=== PATIENT | female | born 1985 | race Caucasian/White ===

== ENCOUNTER → 2019-06-25 13:55 | Outpatient (CLI) | payer SELFPAY ==
--- NOTE | 2019-06-25 13:56 | DI.RAD.S_ITS ---
PROCEDURE: XR ELBOW RT MIN 3V INDICATIONS: Lump in antecubital area, elbow pain. TECHNIQUE: 3 views of the elbow were acquired. COMPARISON: None. FINDINGS: Bones: No fractures or dislocations. No bony erosions. No suspicious bony lesions. Soft tissues: No elbow joint effusion. No suspicious soft tissue calcifications. IMPRESSION: 1. No bony erosions or evidence of joint effusion. Dictated by: Errol Bone M.D. on 06/25/2019 at 13:14 Approved by: Errol Bone M.D. on 06/25/2019 at 13:18
== END ==
PROVIDERS: Family Provider Family Medicine; PCP Family Medicine; Visit Provider Nurse Practitioner
DX: M25.521 Pain in right elbow (principal)
CPT/HCPCS: 73080

== ENCOUNTER 2021-11-04 21:08 | Emergency (ER) | payer BC, SELFPAY ==
[2021-11-04] VITALS (10 sets, daily range): BP systolic 147–207; BP diastolic 75–95; PULSE 95–159; RESP 20–24; TEMP 37.1; O2SAT 95–99
--- NOTE | 2021-11-04 21:21 | ED_ITS ---
HPI - Chest Pain General Chief Complaint: Shortness of Breath/Dyspnea Stated Complaint: possible allergic reaction Time Seen by Provider: 11/04/21 21:15 History of Present Illness HPI narrative: Patient is a 36-year-old female currently 18 weeks . She has received care in [place] with a inside upholsterer. She flew here 5 days ago for work. She has had some increased swelling in her legs. She has had some increased shortness of breath previous to when she got here however it has gotten worse since she has been here. Faintly short of breath whenever she gets up to go to the restroom. He has been checking her blood pressure at home and monitoring it for last couple of weeks it is consistently been 140 tall 150, today it was 160. She was seen by a inside upholsterer today she was noted to have an elevated blood pressure she was prescribed nifedipine 10 mg she took her 1st dose tonight immediately felt flushed home and headaches. She is noted to be quite hypertensive and tachycardic here heart rates in the 140s help blood pressures in the 200s. She has not previously had these issues before her other pregnancies were uncomplicated. She denies any abdominal pain vaginal bleeding for nausea. Related Data Previous Rx's Medication Instructions Recorded cyclobenzaprine 5 mg tablet 10 mg PO BEDTIME PRN #16 tab 06/25/19 labetalol 100 mg tablet 100 mg PO BID #60 tab 11/05/21 Allergies Allergy/AdvReac Type Severity Reaction Status Date / Time INGREDIENT: NO KNOWN - NO Allergy Unknown Uncoded 10/20/17 11:50 KNOWN DRUG ALLERGY UNKNOWN ANTIBIOTIC Allergy Unknown Uncoded 10/20/17 11:50 Review of Systems Review of Systems Narrative: GENERAL: Denies chills, fatigue, malaise, fever, sweats, travel HEENT: Denies sinus pain, ear pain, sore throat, difficulty swallowing, neck pain RESPIRATORY: See HPI CARDIOVASCULAR: See HPI GASTROINTESTINAL: Denies nausea, vomiting, abdominal pain, diarrhea, constipation, melena. : Denies dysuria, frequency, incontinence, hematuria, urinary retention, flank pain. MUSCULOSKELETAL: Denies weakness, joint pain, or bony pain SKIN: No rash, no erythema, no pruritus NEUROLOGIC: No numbness tingling or weakness PSYCHIATRIC: No concerning psychosocial issues. 12 point review of systems is negative except for those stated above and HPI Exam Initial Vital Signs Initial Vital Signs: Vital Signs Pulse Rate 137 H 11/04/21 21:18 Respiratory Rate 21 11/04/21 21:18 Pulse Oximetry 99 11/04/21 21:18 GENERAL: Alert 36-year-old female appears moderate distress in [no acute] distress. HEENT: Head atraumatic,EOMI, pupils reactive, face symmetric, [moist] mucous membranes CARDIOVASCULAR: Regular rate and rhythm without murmurs, rubs or gallops. RESPIRATORY: Breath sounds equal bilaterally, no wheezes rales or rhonchi. ABDOMEN: Soft, gravid nontender. Normoactive bowel sounds all 4 quadrants. No guarding or rebound. : No CVA tenderness EXTREMITIES: Normal range of motion, no clubbing or edema. Neurovascularly intact NEUROLOGICAL: Alert and oriented x4.Normal gait and speech. SKIN: Warm, dry, no laceration, no petechiae, no rashes or lesions. Course Orders Ordered: ED Orders 11/04/21 21:19 A1C [Hemoglobin A1C% w Est Avg Glu] Stat Complete Blood Count AUTO DIFF Stat Comprehensive Metabolic Panel Stat D Dimer Stat Lipase Stat NT-proBNP (BNP-Adult 18+) Stat Partial Thromboplastin Time Stat Prothrombin Time INR Stat Troponin & CK Cardiac Panel Stat 11/04/21 21:21 EKG-12 Lead Stat 11/04/21 22:53 CT angio chest PE protocol Stat Discontinued Medications Sodium Chloride (Normal Saline 0.9%) 1,000 mls @ 1,000 mls/hr IV CONT MARYELLEN Last Infusion: 11/04/21 23:22 Dose: 0 mls/hr Documented by: Admin: 11/04/21 21:33 Dose: 1,000 mls/hr Documented by: FOX Labetalol HCl (Labetalol 20 Mg/4 Ml Syringe) 10 mg IV NOW ONE Stop: 11/04/21 21:25 Last Admin: 11/04/21 21:32 Dose: 10 mg Documented by: FOX Labetalol HCl (Labetalol 100 Mg Tablet) 100 mg PO NOW ONE Stop: 11/05/21 00:50 Last Admin: 11/05/21 01:09 Dose: 100 mg Documented by: FOX Methylprednisolone (Methylprednisolone 125 Mg/2 Ml Vial) 125 mg IV NOW ONE Stop: 11/04/21 21:22 Last Admin: 11/04/21 21:32 Dose: 125 mg Documented by: FOX Ondansetron HCl (Ondansetron 4 Mg/2 Ml Inj) 4 mg IV NOW ONE Stop: 11/04/21 21:22 Last Admin: 11/04/21 21:32 Dose: 4 mg Documented by: FOX Vital Signs Vital signs: Vital Signs - 8 hr 11/04/21 22:00 11/04/21 22:30 11/04/21 23:00 Pulse Rate 100 H 96 H 95 H Respiratory Rate 20 21 23 Blood Pressure 158/86 H 147/75 H 153/84 H Pulse Oximetry 97 96 95 11/04/21 23:41 11/05/21 00:00 11/05/21 00:30 Pulse Rate 109 H 98 H 104 H Respiratory Rate 25 H 23 Blood Pressure Pulse Oximetry 98 95 97 11/05/21 00:46 11/05/21 01:00 Pulse Rate 102 H 98 H Respiratory Rate 23 26 H Blood Pressure 162/88 H 154/85 H Pulse Oximetry 97 95 MDM - Chest Pain Lab Data Result diagrams: 11/04/21 21:19 11/04/21 21:19 Labs: Lab Results 11/04/21 11/04/21 11/04/21 Range/Units 21:19 21:19 21:19 WBC 12.4 H (4.5-11.0) X10^3/uL RBC 4.89 (4.0-5.2) X10^6/uL Hgb 13.5 (12.0-16.0) g/dL Hct 39.9 (36-46) % MCV 81.7 (80-100) fL MCH 27.6 (26-34) PG MCHC 33.8 (30-36) % RDW 15.8 H (11.6-14.8) % Plt Count 265 (150-400) X10^3/uL Neut % (Auto) 68.1 (50-75) % Lymph % (Auto) 22.3 L (25-40) % [place] % (Auto) 6.4 (3-14) % Eos % (Auto) 2.6 (2-4) % Baso % (Auto) 0.6 (0-2) % Neut # (Auto) 8400 H (0505-8215) /uL Lymph # (Auto) 2800 (2680-4029) /uL [place] # (Auto) 800 (0-900) /uL Eos # (Auto) 300 (0-450) /uL Baso # (Auto) 100 (0-100) /uL PT 10.0 L (10.1-12.7) SECONDS INR 0.9 (0.9-1.3) APTT 29 (26.4-36.2) SECONDS D-Dimer (<230) ng/mL Sodium 138 (137-145) mmol/L Potassium 3.6 (3.4-5.1) mmol/L Chloride 105 (98-107) mmol/L Carbon Dioxide 23 (22-32) mmol/L BUN 3 L (7-17) mg/dL Creatinine 0.40 L (0.52-1.04) mg/dL Estimated GFR > 60 (>60) mL/min BUN/Creatinine Ratio 7.5 (6-22) Glucose 229 H (70-100) mg/dL Hemoglobin A1c (4.0-6.0) % Calcium 9.3 (8.4-10.2) mg/dL Total Bilirubin 0.4 (0.2-1.3) mg/dL AST 52 H (14-36) IU/L ALT 37 H (<35) IU/L Alkaline Phosphatase 61 (38-126) U/L Total Creatine Kinase 55 (30-135) U/L CK-MB (CK-2) TNP CK-MB (CK-2) Rel Index TNP Troponin I < 0.012 (0.01-0.034) ng/mL NT-Pro-B Natriuret Pep 13 (<125) pg/mL Total Protein 7.8 (6.3-8.2) g/dL Albumin 4.3 (3.5-5.0) g/dL Globulin 3.5 (1.7-4.1) g/dL Albumin/Globulin Ratio 1.2 (1.0-2.8) Lipase 116 (23-300) U/L 11/04/21 11/04/21 Range/Units 21:19 21:19 WBC (4.5-11.0) X10^3/uL RBC (4.0-5.2) X10^6/uL Hgb (12.0-16.0) g/dL Hct (36-46) % MCV (80-100) fL MCH (26-34) PG MCHC (30-36) % RDW (11.6-14.8) % Plt Count (150-400) X10^3/uL Neut % (Auto) (50-75) % Lymph % (Auto) (25-40) % [place] % (Auto) (3-14) % Eos % (Auto) (2-4) % Baso % (Auto) (0-2) % Neut # (Auto) (9801-0603) /uL Lymph # (Auto) (9827-1440) /uL [place] # (Auto) (0-900) /uL Eos # (Auto) (0-450) /uL Baso # (Auto) (0-100) /uL PT (10.1-12.7) SECONDS INR (0.9-1.3) APTT (26.4-36.2) SECONDS D-Dimer 265 H (<230) ng/mL Sodium (137-145) mmol/L Potassium (3.4-5.1) mmol/L Chloride (98-107) mmol/L Carbon Dioxide (22-32) mmol/L BUN (7-17) mg/dL Creatinine (0.52-1.04) mg/dL Estimated GFR (>60) mL/min BUN/Creatinine Ratio (6-22) Glucose (70-100) mg/dL Hemoglobin A1c 5.8 (4.0-6.0) % Calcium (8.4-10.2) mg/dL Total Bilirubin (0.2-1.3) mg/dL AST (14-36) IU/L ALT (<35) IU/L Alkaline Phosphatase (38-126) U/L Total Creatine Kinase (30-135) U/L CK-MB (CK-2) CK-MB (CK-2) Rel Index Troponin I (0.01-0.034) ng/mL NT-Pro-B Natriuret Pep (<125) pg/mL Total Protein (6.3-8.2) g/dL Albumin (3.5-5.0) g/dL Globulin (1.7-4.1) g/dL Albumin/Globulin Ratio (1.0-2.8) Lipase (23-300) U/L Urine Dip Bedside Urine Glucose 1000 mg/dl Bedside Urine Bilirubin - Negative Bedside Urine Ketone - Negative Urine Specific [place] 1.010 Bedside Urine Occult Blood - Negative Bedside Urine pH 7.5 Bedside Urine Protein - Negative Bedside Urine Urobilinogen - Negative Bedside Urine Nitrite - Negative Bedside Urine Leukocytes - Negative Esterase Imaging Data CT scan - chest: Radiologist's Impression: Signed Patient: Senia West MR#: [id number] : 1985 Acct:[id number] Age/Sex: 36 / F Date of Service: 11/04/21 Loc: ED Accession Number: [id number] ?? Procedure: CT angio chest PE protocol Ordering Provider: Rosie Brewer D.O. PROCEDURE:? CT ANGIO CHEST PE PROTOCOL ? INDICATIONS:? , severe sob after flight ? TECHNIQUE:? After the administration of intravenous contrast, 2 mm thick sections acquired from the pulmonary apices to the posterior costophrenic angles.? 3-dimensional maximum intensity projection (MIP) coronal and sagittal reformats were then acquired through the thorax.? For radiation dose reduction, the following was used:? automated exposure con trol, adjustment of mA and/or kV according to patient size.? ? COMPARISON:? None. ? FINDINGS:? Image quality:? Adequate.? Limited due to technical factors. ? Pulmonary arteries:? Pulmonary arteries are normal in size, and demonstrate no intraluminal filling defects to suggest central pulmonary embolism.? ? Lungs and pleura:? Lungs are clear.? No pleural effusions or pneumothorax.? Central and peripheral airways are patent.? ? Mediastinum:? Heart size is normal, without pericardial effusion.? No mediastinal or hilar adenopathy.? Thoracic aorta is normal in caliber and enhancement.? Esophagus is normal in caliber, without hiatal hernia.? ? Bones and chest wall:? No suspicious bony lesions.? Ribs and thoracic spine appear intact throughout.? Thyroid gland is partially imaged and the visible portion is grossly normal..? No axillary or supraclavicular adenopathy.? ? Abdomen:? The visible portions of the upper abdomen demonstrate hepatomegaly and moderate hepatic steatosis. ? IMPRESSION:? ? 1. No definite pulmonary embolus. ? 2. No pulmonary parenchymal abnormalities. ? 3. Hepatomegaly and moderate hepatic steatosis.? ? ? Dictated by: Saadia Sanchez M.D. on 11/05/2021 at 0:31 ? ? ECG Data Interpretation: Normal sinus rhythm rate MDM Narrative Medical decision making narrative: Patient initially did not appear well tachycardic hypertensive she was immediately given fluids no tongue swelling lip swelling but she is given steroids for possible allergic reaction. Blood pressure continued to cry so she was given labetalol. He is under 20 weeks so unlikely to be preeclampsia. She also has no protein in her urine however she is found have glucose in her urine in her glucose is elevated over 200. His headache may be from all the nife dipine versus hypertension difficult to tell at this time. She has no focal deficits. Headache actually improved with improvement of blood pressure and time as well. Patient is having significant increasing shortness of breath after an airplane flight. Concern for possible pulmonary embolism D-dimer is actually quite low but not 265. [id number] Rivera updated on patient's symptoms and test results. At this time she recommends labetalol onset of nifedipine 100 mg twice a day. Also recommend s aspirin 81 mg once a day especially when she flies home she states patient is quite high risk for preeclampsia and other complications. She strongly encourage is patient followed by an OBGYN rather than a inside upholsterer. She also is concerned about pulmonary embolism and agrees with CT scan to rule out PE. Fortunately CT is negative for pulmonary embolism. Patient blood pressure remains elevated but is significantly lower she is overall feeling much better. Shortness of breath may be related to tachycardia and hypertension. Patient is extremely hesitant to take labetalol which is why her inside upholsterer fever nifedipine. She is worried about or defects in regards to the beta-tonia. She and I have discussed risk and benefits including significant risk with maternal hypertension that is not treated. At this time she agrees to take the labetalol. We discussed following up with OB in [place] which she understands. Discharge Plan Departure Patient Disposition: Home Clinical Impression: induced hypertension Instructions: Pre-eclampsia Activity Restrictions/Additional Instructions: *You have been diagnosed with -induced hypertension *What to do: At this time is strongly recommended that you take blood pressure medication. You are also noted to have an elevated glucose this will need to be monitored by your provider. Elevated glucose, age and elevated blood pressure this early in puts you at higher risk . The strongly recommended that you are monitored by an OBGYN. *Continue to take medications as directed Labetalol 100 mg twice a day Aspirin 81 mg once a day be sure to take this on the day You fly home *Follow up with your primary care provider in 2-3 days or call [phone] *Return to ER if you should have increasing headache, abdominal pain, vaginal bleeding, shortness of breath, palpitations, passing out or any new, worsening or concerning symptoms Prescriptions: New labetalol 100 mg tablet 100 mg PO BID Qty: 60 0RF No Action cyclobenzaprine 5 mg tablet 10 mg PO BEDTIME PRN (Reason: muscle spasm) Qty: 16 0RF Referrals: Mian Phillips MD [Primary Care Provider] -
[2021-11-04] MEDS: methylPREDNISolone 125 MG/2 ML VIAL IV (21:32)
[2021-11-04] MEDS: LABETALOL 20 MG/4 ML SYRINGE 10 MG IV (21:32)
[2021-11-04] MEDS: ONDANSETRON 4 MG/2 ML INJ IV (21:32)
[2021-11-04] MEDS: SODIUM CHLORIDE 0.9% 1,000 ML 1000 ML IV (21:33)
[2021-11-04 21:34] LABS: INR 0.9 (0.9-1.3)
[2021-11-04 21:37] LABS: PTT Partial Thromboplastin Tim 29 SECONDS (26.4-36.2)
[2021-11-04 21:38] LABS: Alanine Aminotransferase 37 IU/L (<35); Albumin 4.3 g/dL (3.5-5.0); Albumin Globulin Ratio 1.2 (1.0-2.8); Alkaline Phosphatase 61 U/L (38-126); Aspartate Aminotransferase 52 IU/L (14-36); BUN Creatinine Ratio 7.5 (6-22); Bilirubin Total 0.4 mg/dL (0.2-1.3); Blood Urea Nitrogen 3 mg/dL (7-17); Calcium 9.3 mg/dL (8.4-10.2); Carbon Dioxide 23 mmol/L (22-32); Chloride 105 mmol/L (98-107); Creatine Kinase 55 U/L (30-135); Estimated Glomerular Filt Rate > 60 mL/min (>60); Globulin 3.5 g/dL (1.7-4.1); Glucose 229 mg/dL (70-100); Lipase 116 U/L (23-300); Potassium 3.6 mmol/L (3.4-5.1); Sodium 138 mmol/L (137-145); Total Protein 7.8 g/dL (6.3-8.2)
[2021-11-04 21:39] LABS: Add Manual Diff / Slide Review NO; Basophils Absolute Auto 100 /uL (0-100); Basophils Percent Auto 0.6 % (0-2); Eosinophils Absolute Auto 300 /uL (0-450); Eosinophils Percent Auto 2.6 % (2-4); Hematocrit 39.9 % (36-46); Hemoglobin 13.5 g/dL (12.0-16.0); Lymphocytes Absolute Auto 2800 /uL (1100-4500); Lymphocytes Percent Auto 22.3 % (25-40); Mean Corpuscular HGB Conc 33.8 % (30-36); Mean Corpuscular Hemoglobin 27.6 PG (26-34); Mean Corpuscular Volume 81.7 fL (80-100); Monocytes Absolute Auto 800 /uL (0-900); Monocytes Percent Auto 6.4 % (3-14); Neutrophils Absolute Auto 8400 /uL (1500-7000); Neutrophils Percent Auto 68.1 % (50-75); Platelet Count 265 X10^3/uL (150-400); Red Blood Cell Count 4.89 X10^6/uL (4.0-5.2); Red Cell Distribution Width 15.8 % (11.6-14.8); White Blood Cell Count 12.4 X10^3/uL (4.5-11.0)
[2021-11-04 21:41] LABS: HEMOLYSIS 51 (0-50)
[2021-11-04 21:50] LABS: NT-proBNP (BNP-Adult 18+) 13 pg/mL (<125); Troponin I < 0.012 ng/mL (0.01-0.034)
--- NOTE | 2021-11-04 22:09 | PC.NURSE ---
pt has been having c/p and started taking procardia today, now presents with sob and heart throbbing
[2021-11-04 22:19] LABS: D Dimer 265 ng/mL (<230)
[2021-11-04 22:26] LABS: Hemoglobin A1C% w Est Avg Glu 5.8 % (4.0-6.0)
--- NOTE | 2021-11-04 22:35 | PC.NURSE ---
pt states her breathing is better and she is feeling better but still has a h/a
--- NOTE | 2021-11-04 22:53 | DI.CT.S_ITS ---
PROCEDURE: CT ANGIO CHEST PE PROTOCOL INDICATIONS: , severe sob after flight TECHNIQUE: After the administration of intravenous contrast, 2 mm thick sections acquired from the pulmonary apices to the posterior costophrenic angles. 3-dimensional maximum intensity projection (MIP) coronal and sagittal reformats were then acquired through the thorax. For radiation dose reduction, the following was used: automated exposure control, adjustment of mA and/or kV according to patient size. COMPARISON: None. FINDINGS: Image quality: Adequate. Limited due to technical factors. Pulmonary arteries: Pulmonary arteries are normal in size, and demonstrate no intraluminal filling defects to suggest central pulmonary embolism. Lungs and pleura: Lungs are clear. No pleural effusions or pneumothorax. Central and peripheral airways are patent. Mediastinum: Heart size is normal, without pericardial effusion. No mediastinal or hilar adenopathy. Thoracic aorta is normal in caliber and enhancement. Esophagus is normal in caliber, without hiatal hernia. Bones and chest wall: No suspicious bony lesions. Ribs and thoracic spine appear intact throughout. Thyroid gland is partially imaged and the visible portion is grossly normal.. No axillary or supraclavicular adenopathy. Abdomen: The visible portions of the upper abdomen demonstrate hepatomegaly and moderate hepatic steatosis. IMPRESSION: 1. No definite pulmonary embolus. 2. No pulmonary parenchymal abnormalities. 3. Hepatomegaly and moderate hepatic steatosis. Dictated by: Saadia Sanchez M.D. on 11/05/2021 at 0:31 Approved by: Saadia Sanchez M.D. on 11/05/2021 at 0:34
[2021-11-05] VITALS: PULSE 98; RESP 25; O2SAT 95
[2021-11-05 00:30] VITALS: PULSE 104; RESP 23; O2SAT 97
[2021-11-05 00:46] VITALS: BP 162/88; PULSE 102; RESP 23; O2SAT 97
[2021-11-05 01:00] VITALS: BP 154/85; PULSE 98; RESP 26; O2SAT 95
[2021-11-05] MEDS: LABETALOL 100 MG TABLET PO (01:09)
== END 2021-11-05 01:35 | disposition home or self-care (01) ==
PROVIDERS: Emergency Provider Emergency Medicine; Family Provider Family Medicine; PCP Family Medicine
DX: O13.2 Gestational [pregnancy-induced] hypertension without significant proteinuria, second trimester (principal); Z3A.18 18 weeks gestation of pregnancy
CPT/HCPCS: 36415; 71275; 80053; 81003; 82550; 83036; 83690; 83880; 84484; 85025; 85379; 85610; 85730; 96361; 96374; 96375; 99284; J2405; J2930; Q9967

== ENCOUNTER → 2021-11-07 16:30 | Outpatient (CLI) | payer BC, SELFPAY ==
--- NOTE | 2021-11-07 16:33 | DI.US.S_ITS ---
PROCEDURE: US OB LIMITED INDICATIONS: COMPLETE OR SPONTANEOUS CHECK TECHNIQUE: Real-time scanning was performed of the fetus, with image documentation and biometric measurements. COMPARISON: None. FINDINGS: General: A single living intrauterine gestation is present. Presentation: Vertex to oblique. Placenta: Placental position is right lateral , without previa. Amniotic fluid index: 9.5 cm, normal range is 5-24 cm. heart rate: 157 beats per minute. Maternal cervical canal: 5.8 cm long. No biometrics or anatomy was assessed. IMPRESSION: Single living fetus is visualized in vertex to oblique presentation with heart rate of 157 beats per minute. No additional imaging of the fetus was performed. Follow-up recommended. Dictated by: Enmanuel Mendez [facility] Interpreted: Osei Farley MD on 11/07/2021 at 17:03 Transcribed by: ISIS on 11/07/2021 at 17:06 Approved by: Song Farley M.D. on 11/07/2021 at 18:12
== END ==
PROVIDERS: Family Provider Family Medicine; PCP Family Medicine; Referring Provider Midwife; Visit Provider Midwife
DX: Z34.90 Encounter for supervision of normal pregnancy, unspecified, unspecified trimester (principal)
CPT/HCPCS: 76815